=== PATIENT | female | born 1990 ===

== ENCOUNTER → 2018-03-24 19:39 | Outpatient (REF) | payer SELFPAY ==
[2018-03-27 11:39] LABS: RPR Screen Nonreactive (Nonreactive)
[2018-03-27 16:58] LABS: QuantiFERON TB NEGATIVE (Negative)
== END ==
LOC: LAB 19:39
PROVIDERS: Visit Provider Family Medicine Adult Medicine
DX: Z00.00 Encounter for general adult medical examination without abnormal findings (principal)
CPT/HCPCS: 86480; 86592; 87491; 87591